=== PATIENT | male | born 1960 | race Two or more races ===

== ENCOUNTER 2016-11-11 19:11 | Inpatient (IN) | payer OTHER ==
[2016-11-11] MEDS ORDERED: SODIUM CHLORIDE 0.9% 500 ML IV STA (19:33)
[2016-11-11 19:47] LABS: Basophils % (A) 0 %; CH 32.2; Eosinophils # (A) 0.1 k/uL (0-0.7); Eosinophils % (A) 1 %; HCT 44.1 % (39.0-53.0); HDW 2.84; HGB 15.8 gm/dL (13.0-17.5); Luc # (Auto) 0.12; Luc % (Auto) 1; Lymphocytes # (A) 1.2 k/uL (1.0-4.8); Lymphocytes % (A) 9 %; MCH 31.2 pg (25.0-35.0); MCHC 35.8 g/dL (31.0-37.0); MCV 87.3 fL (80.0-100.0); Mean Platelet Volume 7.8; Monocytes # (A) 0.8 k/uL (0-1.0); Monocytes % (A) 6 %; Neutrophils # (A) 11.2 k/uL (1.3-7.7); Neutrophils % (A) 83 %; RBC 5.05 m/uL (4.30-5.90); WBC 13.5 k/uL (3.8-10.6); WBC (Perox) 13.35
[2016-11-11 20:01] LABS: ALT 29 U/L (21-72); AST 17 U/L (17-59); Alkaline Phosphatase 102 U/L (38-126); Anion Gap 13 mmol/L; Blood Urea Nitrogen 12 mg/dL (9-20); Calcium 9.3 mg/dL (8.4-10.2); Carbon Dioxide 22 mmol/L (22-30); Chloride 104 mmol/L (98-107); Glucose 223 mg/dL (74-99); Non-African American GFR(MDRD) >60 (>60 ml/min/1.73 sqM); Potassium 3.5 mmol/L (3.5-5.1); Sodium 139 mmol/L (137-145); Total Bilirubin 1.8 mg/dL (0.2-1.3); Total Protein 6.8 g/dL (6.3-8.2)
[2016-11-11 20:12] LABS: Partial Thromboplastin Time 22.2 sec (22.0-30.0); Prothrombin Time 10.4 sec (9.0-12.0)
[2016-11-11] MEDS ORDERED: SODIUM CHLORIDE 0.9% 2,500 ML IV ONE (20:16)
[2016-11-11] MEDS ORDERED: ACETAMINOPHEN TAB 325 MG TAB PO STA (20:17)
[2016-11-11] MEDS ORDERED: NITROGLYCERIN SL TABS 0.4 MG TAB SUBLINGUAL PRN (20:34)
[2016-11-11] MEDS ORDERED: ASPIRIN 325 MG TAB PO PRN (20:37)
--- NOTE | 2016-11-11 20:38 | XR ---
EXAMINATION TYPE: XR chest 1V portable DATE OF EXAM: 11/11/2016 COMPARISON: NONE INDICATION: Fever TECHNIQUE: Single frontal view of the chest is obtained. FINDINGS: The heart size is normal. The pulmonary vasculature is normal. The lungs are clear. IMPRESSION: 1. No acute pulmonary process.
--- NOTE | 2016-11-11 20:43 | ED ---
Chest Pain HPI - General Chief Complaint: Chest Pain Stated Complaint: chest pain Time Seen by Provider: 11/11/16 19:23 Source: patient Mode of arrival: EMS Limitations: no limitations - History of Present Illness Initial Comments: This patient's a 56-year-old man who presents to be evaluated for number symptoms at all developed this afternoon while he was working, sometime around 5 PM. The patient states that he first noticed she was having a little bit of frontal headache, moderate intensity, constant, without worsening or relieving factors. He states it's not the worst headache of life. The patient then also was feeling a little bit lightheaded, and then noted that he was having some pain in the chest is indicating the substernal area. States that it is kind of heaviness, moderate intensity. There are no associated symptoms. He has not noted any worsening or relieving factors. There were no anginal type symptoms, including no dyspnea, diaphoresis, nausea or vomiting, syncope, lightheadedness , or palpitations. No pain or swelling in the legs. MD Complaint: chest pain Onset/Timin -: hour(s) Onset: during exertion Pain Location: substernal Pain Radiation: none Severity: moderate Quality: heaviness Consistency: constant Improves With: nothing Worsens With: nothing Other Symptoms: fever - Related Data Home Medications Medication Instructions Recorded Confirmed Aspirin 325 mg PO DAILY PRN 11/11/16 11/11/16 Aspirin [Adult Low Dose Aspirin EC] 81 mg PO DAILY PRN 11/11/16 11/11/16 Lisinopril [Zestril] 40 mg PO DAILY 11/11/16 11/11/16 Previous Rx's Medication Instructions Recorded Meclizine [Antivert] 25 mg PO QID PRN #30 tab 11/14/16 glipiZIDE XL [Glucotrol XL] 5 mg PO DAILY #30 tab 11/14/16 metFORMIN HCL [Metformin HCl] 850 mg PO BID #60 tablet 11/14/16 Allergies Allergy/AdvReac Type Severity Reaction Status Date / Time tetanus toxoid, adsorbed Allergy Unknown Verified 11/11/16 19:59 Review of Systems ROS Statement: Those systems with pertinent positive or pertinent negative responses have been documented in the HPI. ROS Other: All systems not noted in ROS Statement are negative. Constitutional: Denies: fever, chills, weakness Eyes: Denies: vision change ENT: Denies: ear pain, throat pain, congestion Respiratory: Denies: cough, dyspnea, wheezes Cardiovascular: Reports: as per HPI, chest pain. Denies: palpitations, orthopnea, edema, syncope Gastrointestinal: Denies: abdominal pain, nausea, vomiting, melena, hematochezia Genitourinary: Denies: dysuria, frequency, hematuria Musculoskeletal: Denies: back pain Skin: Denies: rash Neurological: Reports: headache. Denies: weakness, numbness EKG Findings - EKG Comments: EKG Findings:: There are Q waves in leads II, III, and F aVF, suggestive of possible old inferior infarct. There are Q waves in V2 and V3 suggestive of possible old anterior infarct. - EKG Results: EKG: interpreted by ROSSI, sinus rhythm, normal axis, normal QRS, normal ST/T EKG shows: tachycardia (Rate 117 bpm) Past Medical History Past Medical History: Hypertension Additional Past Medical History / Comment(s): UMBILICAL HERNIA, BACK ISSUES History of Any Multi-Drug Resistant Organisms: None Reported Past Surgical History: No Surgical Hx Reported Past Psychological History: No Psychological Hx Reported Smoking Status: Never smoker Past Alcohol Use History: Occasional Past Drug Use History: None Reported - Past Family History Mother Family Medical History: Diabetes Mellitus General Exam Limitations: no limitations General appearance: alert, in no apparent distress Head exam: Present: atraumatic, normocephalic, normal inspection Eye exam: Present: normal appearance, PERRL, EOMI. Absent: scleral icterus, conjunctival injection ENT exam: Present: normal oropharynx, TM's normal bilaterally Neck exam: Present: normal inspection, full ROM. Absent: tenderness Respiratory exam: Present: normal lung sounds bilaterally. Absent: respiratory distress, wheezes, rales, rhonchi Cardiovascular Exam: Present: regular rate, normal rhythm, normal heart sounds. Absent: systolic murmur, diastolic murmur, rubs, gallop Neurological exam: Present: alert, oriented X3, CN II-XII intact. Absent: motor sensory deficit Skin exam: Present: warm, dry, intact, normal color. Absent: rash Course Vital Signs 11/11/16 11/11/16 11/11/16 19:13 19:27 19:43 Temperature 98.4 F 101.5 F H Pulse Rate 118 H Respiratory 20 10 L Rate Blood Pressure 126/80 O2 Sat by Pulse 97 Oximetry 11/11/16 11/11/16 11/11/16 20:10 21:00 21:51 Temperature 102.0 F H 101.5 F H 101.3 F H Pulse Rate 112 H 105 H 105 H Respiratory 12 18 16 Rate Blood Pressure 109/68 123/67 123/70 O2 Sat by Pulse 98 99 97 Oximetry 11/11/16 11/11/16 22:49 23:53 Temperature 102.3 F H 101.4 F H Pulse Rate 107 H 104 H Respiratory 12 16 Rate Blood Pressure 115/77 131/90 O2 Sat by Pulse 98 99 Oximetry Critical Care Time Critical Care Time: Yes (30 minutes) Disposition Clinical Impression: Chest pain, Fever, Sepsis Disposition: ADMITTED IP TO THIS HOSP Condition: Fair
[2016-11-11 22:04] LABS: Appearance,Urine Clear (Clear); Bilirubin,Urine Negative (Negative); Glucose,Urine (UA) Trace (Negative); Ketones,Urine Negative (Negative); Leukocyte Esterase,Urine Negative (Negative); Nitrite,Urine Negative (Negative); PH, Urine 5.5 (5.0-8.0); Protein,Urine Negative (Negative); Specific Gravity,Urine 1.011 (1.001-1.035); UA Billing (MACRO vs. MICRO) CHEM; Urobilinogen,Urine <2.0 mg/dL (<2.0)
[2016-11-11] MEDS ORDERED: IBUPROFEN 400 MG TAB PO STA (22:59)
[2016-11-11] MEDS: SODIUM CHLORIDE 0.9% 1,000 ML IV SCH (23:52)
[2016-11-12 02:03] LABS: Creatine Kinase 32 U/L (55-170)
[2016-11-12 02:16] LABS: Creatine Kinase MB 0.2 ng/mL (0.0-2.4); Troponin I <0.012 ng/mL (0.000-0.034)
[2016-11-12] MEDS: ACETAMINOPHEN TAB 325 MG TAB PO PRN ×3 (06:35→21:08)
[2016-11-12 07:33] LABS: Cholesterol 162 mg/dL (<200); HDL Cholesterol 46 mg/dL (40-60); Triglycerides 108 mg/dL (<150)
[2016-11-12] MEDS: LISINOPRIL 20 MG TAB PO SCH ×2 (07:52→10:41)
[2016-11-12 08:01] LABS: Creatine Kinase 39 U/L (55-170)
[2016-11-12] MEDS ORDERED: SODIUM CHLORIDE 0.9% 500 ML IV ONE (08:03)
[2016-11-12] MEDS ORDERED: SODIUM CHLORIDE 0.9% 1,000 ML IV ONE (08:03)
[2016-11-12 08:05] LABS: Creatine Kinase MB 0.3 ng/mL (0.0-2.4); Troponin I <0.012 ng/mL (0.000-0.034)
[2016-11-12] MEDS: SODIUM CHLORIDE 0.9% 1,000 ML IV SCH ×3 (08:31→17:26)
[2016-11-12] MEDS ORDERED: ASPIRIN 325 MG TAB PO SCH (09:00)
--- NOTE | 2016-11-12 10:17 | CONS ---
DATE OF CONSULTATION: CHIEF COMPLAINT: Fever, chills and chest discomfort. HISTORY OF PRESENT ILLNESS: This is a 56-year-old gentleman with history of hypertension who developed sudden onset headache, not feeling well and body aches all over and felt feverish. In all this, he also complained of chest pain. He came to hospital. His T-max is about 102.7 and he is sweating excessively. Serum lactate is elevated on admission and has gotten worse since admission, his chest discomfort has resolved. EKG does not reveal acute ischemic changes. 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 There is no prior cardiac history. There is no history of angioplasty. The patient is currently being treated with IV antibiotics without significant change in his symptoms and an ID consultation is pending at this time. Past medical history is significant for hypertension. Current medications include: 1. Aspirin. 2. Lisinopril. ALLERGIC TO TETANUS SHOTS. FAMILY HISTORY: Negative for premature coronary artery disease. Social history is negative for smoking. There is no history of ETOH abuse, or drug abuse. Past surgical history is significant for umbilical hernia surgery. REVIEW OF SYSTEMS: HEENT: Unremarkable. CARDIAC: As described above. RESPIRATORY: Negative. GI: Negative. GENITOURINARY: Negative. Allergy/immunology: Negative. SKIN: Negative. MUSCULOSKELETAL: Significant for arthritis. PSYCHOSOCIAL: Negative. Dermatology: Negative. ENDOCRINE: Negative. CONSTITUTIONAL: Significant for fever, chills and fatigue. Oncological: Negative. HEMATOLOGICAL: Negative. Dermatology: Negative. CONSTITUTIONAL: As described above. The rest of the system review is not relevant. On exam, temperature is 101.5. Heart rate is 90, blood pressure is 119/60, respirations 18. Chest exam reveals good air entry bilaterally. Heart exam reveals first and second heart sounds. No gallop. No murmur, no rub. ABDOMEN: Soft, nontender. Exam of the extremities did not reveal any edema. Peripheral pulses are felt. Labs have shown a creatinine of 0.7. Hemoglobin is 15.8. Platelet count is 170, potassium is 3.5. Creatinine is 0.7. ASSESSMENT: 1. Chest pain, atypical, noncardiac. 2. Fever, chills and elevated lactic acid possible sepsis. PLAN: I am going to obtain a 2-D echo. Cut down the dose of Lisinopril to 20 mg daily. Antibiotics on board. The patient has had poorly controlled blood pressures in the outpatient setting. I am going to follow him and adjust those. Will follow him through his hospitalization.
[2016-11-12] MEDS ORDERED: VANCOMYCIN 1,500 MG in SODIUM CHLORIDE 0.9% 250 ML IVPB ONE (12:14)
[2016-11-12] MEDS ORDERED: IV VANCOMYCIN PER PHARMACY 1 EACH MISC MISCELLANE ONE (12:45)
[2016-11-12] MEDS: cefTRIAXone 2,000 MG in SODIUM CHLORIDE 0.9% 100 ML IVPB SCH ×2 (13:16→23:31)
--- NOTE | 2016-11-12 15:42 | P.PCN ---
Date of Procedure: 11/12/16 Preoperative Diagnosis: Postoperative Diagnosis: Procedure(s) Performed: Preoperative diagnosis: Meningitis Post operative diagnoses: Meningitis Anesthesia local infiltration with lidocaine 1% 5 mL. Condition: stable Complication: none. Description of the procedure procedure risk and benefits discussed with the patient and family, consent signed. Patient placed in sitting position back prepped with chlorhexidine 3 times been local infiltration of the skin and subcutaneous tissue with lidocaine 1% 5 mL , for skin and subcu interstitial frustrations at L4- 5 levels then 22-gauge Quincke-type needle advanced slowly at L4-5 interlaminar space there was positive cerebrospinal fluid which was clear, no heme, no paresthesia ,total of 10 ML of clear cerebrospinal fluid collected in 4 different tubes 2-3 mL in each, then the needle removed and a Band-Aid applied and patient tolerated the procedure well without any complications. Implants: Indications for Procedure: Operative Findings: Description of Procedure:
[2016-11-12] MEDS ORDERED: MORPHINE SULFATE 2 MG/ML SYRINGE IVP PRN (16:02)
[2016-11-12 16:16] LABS: Glucose,CSF 115 mg/dL (40-70)
[2016-11-12 17:00] LABS: Appearance,CSF Clear
[2016-11-12] MEDS ORDERED: VANCOMYCIN 1,750 MG in SODIUM CHLORIDE 0.9% 250 ML IVPB SCH (21:00)
--- NOTE | 2016-11-12 21:25 | HP ---
DATE OF ADMISSION: 11/11/2016 REASON FOR ADMISSION: Headache and chest pain. HISTORY OF PRESENT ILLNESS: This is a 56-year-old gentleman who was in normal health until the day prior to admission comes in the hospital on the onset symptoms of feeling generally weak. Patient stated that he noted some diffuse headaches, however, complains of predominant frontal headache, moderate intensity with some concern for worsening neck pain on flexion in his neck. Patient also stated to have chest pain during the same period of time, came into the hospital from his work place for further evaluation. Patient stated that there is no alleviating or exacerbating factors for chest pain, chest pain was short lasting, stated to be pressure-like, no radiating symptoms were reported. Patient states that he does have some sensitivity to light at this time and headache was predominant during my evaluation. The patient was noted to have a lactic acidosis and fever. With concern for sepsis, patient was started on antibiotics, was admitted to the hospital. Patient received about 3 liters of crystalloids; however, fluids were discontinued thereafter. Patient's lactic acid thereafter worsened. Chest x-ray did not reveal any acute processes. UA was not significant. Patient was also have temperature during my evaluation greater than 101. No diarrhea, urinary urgency, frequency, difficulty in breathing or chest pain is reported during my evaluation. Fourteen-point review of system was done; none pertinent other than was mentioned above. Home medications include: 1. Aspirin. 2. Lisinopril. ALLERGIES INCLUDE A TETANUS TOXOID, DOSES WERE REVIEWED AND APPROPRIATELY RECONCILED. PAST MEDICAL HISTORY: Hypertension. PAST SURGICAL HISTORY: Umbilical hernia repair. FAMILY HISTORY: Negative for premature heart disease. SOCIAL HISTORY: No significant drug use, significant alcohol or tobacco use. PHYSICAL EXAMINATION: Vitals include a T-max of 102.3, blood pressure has been 122/75. Saturating 96% on room air. Heart rate between 86 to 120. GENERALLY: Patient appears to be alert, oriented x3. HEENT: The pupils are equal and reactive to light and accommodation. HEART: S1, S2 present. No murmur appreciated. LUNGS: Good air entry. No wheezing or rhonchi noted. ABDOMINAL EXAM: Soft, nontender, previous umbilical hernia repair scar is noted with no recurrent hernia. Bowel sounds are intact. No organomegaly. GENITOURINARY: No Darby in place. EXTREMITIES: Pulses can be palpated distally. Denies any tenderness on gross palpation. SKIN: On a gross skin exam does not appear to have any purpura or any skin rashes that were noted. NEUROLOGICALLY: Grossly cranial nerves II through XII grossly intact. Meningismus is appreciated; however, states to have some chronic back pain as well. There is some reproducibility of symptoms with Kernig's signs, blurry vision is reported. A bedside vision test appears to be within normal limits. Laboratory data include white count of 13.9, hemoglobin 15.8, hematocrit 44.1, platelets of 170. Sodium 139, potassium 3.5, chloride 104, bicarb 22. BUN 12, creatinine 0.70. ASSESSMENT AND PLAN: 1. Sepsis due to unknown sepsis of unknown source. 2. Hypertension. 3. Atypical chest pain. 4. Lactic acidosis secondary to above. PLAN: With plans of Meningismus we will obtain anesthesia consult for a lumbar puncture. We will have a cell count and culture thereafter. Patient will be started on Rocephin 2 grams q.12 hours and vancomycin. We will have infectious disease in consultation as well. A repeat chest x-ray will also be done. UA was reviewed and no source of sepsis is identified at this time. We will treat the current symptoms at this time. The rapid onset of symptoms could be concerning for viral etiology however, patient denies having any complaints at this time. We will follow. Discussed with the patient. Another fluid bolus was given. Follow up and maintenance fluids to be at 100 mL/h. We will follow.
[2016-11-13] MEDS: SODIUM CHLORIDE 0.9% 1,000 ML IV SCH ×2 (06:12→21:26)
[2016-11-13 06:35] LABS: Basophils % (A) 0 %; CH 31.3; CHCM 35.2; Eosinophils # (A) 0.1 k/uL (0-0.7); Eosinophils % (A) 1 %; HCT 38.6 % (39.0-53.0); HDW 2.81; HGB 13.4 gm/dL (13.0-17.5); Luc # (Auto) 0.16; Luc % (Auto) 2; Lymphocytes # (A) 1.4 k/uL (1.0-4.8); Lymphocytes % (A) 14 %; MCHC 34.8 g/dL (31.0-37.0); MCV 89.3 fL (80.0-100.0); Mean Platelet Volume 7.7; Monocytes # (A) 0.7 k/uL (0-1.0); Monocytes % (A) 7 %; Neutrophils # (A) 7.3 k/uL (1.3-7.7); Neutrophils % (A) 76 %; RBC 4.33 m/uL (4.30-5.90); RDW 13.3 % (11.5-15.5); WBC 9.7 k/uL (3.8-10.6); WBC (Perox) 10.23
[2016-11-13 06:49] LABS: ALT 28 U/L (21-72); AST 12 U/L (17-59); Alkaline Phosphatase 65 U/L (38-126); Anion Gap 7 mmol/L; Blood Urea Nitrogen 5 mg/dL (9-20); Calcium 8.1 mg/dL (8.4-10.2); Carbon Dioxide 24 mmol/L (22-30); Chloride 108 mmol/L (98-107); Glucose 182 mg/dL (74-99); Non-African American GFR(MDRD) >60 (>60 ml/min/1.73 sqM); Potassium 3.4 mmol/L (3.5-5.1); Sodium 139 mmol/L (137-145); Total Protein 5.2 g/dL (6.3-8.2)
[2016-11-13] MEDS: LISINOPRIL 20 MG TAB PO SCH (08:10)
[2016-11-13] MEDS: cefTRIAXone 2,000 MG in SODIUM CHLORIDE 0.9% 100 ML IVPB SCH (08:11)
[2016-11-13] MEDS: VANCOMYCIN 1,500 MG in SODIUM CHLORIDE 0.9% 250 ML IVPB SCH ×2 (08:49→16:00)
--- NOTE | 2016-11-13 09:06 | XR ---
EXAMINATION TYPE: XR chest 1V portable DATE OF EXAM: 11/13/2016 HISTORY: Shortness of breath. COMPARISON: 11/11/2016 TECHNIQUE: Single view of the chest is submitted. FINDINGS: Demonstrated are scattered senescent parenchymal change. There is no evidence for focal infiltrate. The heart is stable. Hilar and mediastinal structures are within normal limits. Degenerative changes are seen of the dorsal spine. IMPRESSION: 1. Chronic changes without evidence for acute pulmonary disease.
[2016-11-13 10:11] LABS: Erythrocyte Sedimentation Rate 18 mm/hr (0-15)
--- NOTE | 2016-11-13 11:00 | ECHOF ---
Referral Reason:chest pain MEASUREMENTS -------- HEIGHT: 165.1 cm WEIGHT: 100.7 kg BP: 140/60 RVIDd: 2.5 cm (< 3.3) IVSd: 1.3 cm (0.6 - 1.1) LVIDd: 4.2 cm (3.9 - 5.3) LVPWd: 1.3 cm (0.6 - 1.1) IVSs: 1.7 cm LVIDs: 3.8 cm LVPWs: 1.6 cm LA Diam: 3.7 cm (2.7 - 3.8) Ao Diam: 3.5 cm (2.0 - 3.7) AV Cusp: 2.2 cm (1.5 - 2.6) LA Diam: 3.8 cm (2.7 - 3.8) MV EXCURSION: 17.701 mm (> 18.000) MV EF SLOPE: 94 mm/s (70 - 150) EPSS: 0.5 cm MV E Vipin: 0.61 m/s MV DecT: 173 ms MV A Vipin: 0.83 m/s MV E/A Ratio: 0.73 RAP: 5.00 mmHg RVSP: 24.08 mmHg FINDINGS -------- Sinus rhythm. This was a technically adequate study. There is mild concentric left ventricular hypertrophy. Overall left ventricular systolic function is normal with, an EF between 55 - 60 %. The right ventricle is normal in size. The left atrial size is normal. The right atrial size is normal. There is mild aortic valve sclerosis. There is no evidence of aortic regurgitation. Mild mitral annular calcification present. Mild mitral regurgitation is present. Mild tricuspid regurgitation present. There is no evidence of pulmonary hypertension. The right ventricular systolic pressure, as measured by Doppler, is 24.08mmHg. There is no pulmonic regurgitation present. The aortic root size is normal. There is no pericardial effusion. CONCLUSIONS -------- 1. There is mild concentric left ventricular hypertrophy. 2. Overall left ventricular systolic function is normal with, an EF between 55 - 60 %. 3. There is mild aortic valve sclerosis. 4. Mild mitral annular calcification present. 5. Mild mitral regurgitation is present. 6. Mild tricuspid regurgitation present. 7. There is no evidence of pulmonary hypertension. 8. The right ventricular systolic pressure, as measured by Doppler, is 24.08mmHg. 9. There is no pericardial effusion. IT INTERN: Gemma Gomez RDCS
--- NOTE | 2016-11-13 12:42 | PN ---
56-year-old gentleman who is admitted to hospital with a febrile illness. Cardiology had been consulted because of chest discomfort. He is doing much better now. Fever has resolved. Chest pain has resolved. An echocardiogram shows normal LV function. On exam, vital signs are stable. There is no jugular venous distention. Chest exam reveals good air entry bilaterally. Heart exam reveals first and second heart sounds. No gallop. ABDOMEN: Soft. Exam of the extremities did not reveal edema. Peripheral pulses are felt. The patient is currently on Zestril 40 daily along with antibiotics. ASSESSMENT: 1. Febrile illness of unclear etiology. 2. Chest pain, atypical. PLAN: No further cardiac work-up at this time. Reviewed echo results with him. From my standpoint, patient is stable to be discharged home and I will arrange an outpatient stress test on him when he is more stable.
--- NOTE | 2016-11-13 14:49 | CT ---
EXAMINATION TYPE: CT brain wo con DATE OF EXAM: 11/13/2016 2:12 PM COMPARISON: NONE HISTORY: Dizziness CT DLP: 1047.10 mGycm Automated exposure control for dose reduction was used. FINDINGS: Ventricles are of normal size. There is no mass effect or midline shift. There is no sign of intracra nial hemorrhage. The calvarium is intact. IMPRESSION: Negative unenhanced head CT scan.
--- NOTE | 2016-11-13 16:47 | P.PN ---
Subjective HISTORY OF PRESENT ILLNESS: This is a 56-year-old gentleman who was in normal health until the day prior to admission comes in the hospital on the onset symptoms of feeling generally weak. Patient stated that he noted some diffuse headaches, however, complains of predominant frontal headache, moderate intensity with some concern for worsening neck pain on flexion in his neck. Patient also stated to have chest pain during the same period of time, came into the hospital from his work place for further evaluation. Patient stated that there is no alleviating or exacerbating factors for chest pain, chest pain was short lasting, stated to be pressure-like, no radiating symptoms were reported. Patient states that he does have some sensitivity to light at this time and headache was predominant during my evaluation. The patient was noted to have a lactic acidosis and fever. With concern for sepsis, patient was started on antibiotics, was admitted to the hospital. Patient received about 3 liters of crystalloids; however, fluids were discontinued thereafter. Patient's lactic acid thereafter worsened. Chest x-ray did not reveal any acute processes. UA was not significant. Patient was also have temperature during my evaluation greater than 101. No diarrhea, urinary urgency, frequency, difficulty in breathing or chest pain is reported during my evaluation. 11/13/16 States to have some dizziness, however improved from prior eval no more fevers reported Fourteen-point review of system was done; none pertinent other than was mentioned above. PHYSICAL EXAMINATION: V GENERALLY: Patient appears to be alert, oriented x3. HEENT: The pupils are equal and reactive to light and accommodation. HEART: S1, S2 present. No murmur appreciated. LUNGS: Good air entry. No wheezing or rhonchi noted. ABDOMINAL EXAM: Soft, nontender, previous umbilical hernia repair scar is noted with no recurrent hernia. Bowel sounds are intact. No organomegaly. GENITOURINARY: No Darby in place. EXTREMITIES: Pulses can be palpated distally. Denies any tenderness on gross palpation. SKIN: On a gross skin exam does not appear to have any purpura or any skin rashes that were noted. NEUROLOGICALLY: Grossly cranial nerves II through XII grossly intact. no focal motor or sensory deficits noted. Objective - Vital Signs Vital signs: Vital Signs Temp 98.8 F 11/13/16 16:00 Pulse 76 11/13/16 16:00 Resp 19 11/13/16 16:00 BP 142/97 11/13/16 16:00 Pulse Ox 96 11/13/16 16:00 Intake & Output 11/12/16 11/13/16 11/13/16 18:59 06:59 18:59 Intake Total 2300 1450 1180 Output Total 675 550 Balance 1625 1450 630 Weight 98.8 kg Intake: IV 1450 490 Sodium Chloride 0.9% 1, 1100 140 000 ml @ 100 mls/hr IV . Q10H [facility] Rx#:[id number] Vancomycin 1,750 mg In 250 250 Sodium Chloride 0.9% 250 ml @ 125 mls/hr IVPB Q12HR [facility] Rx#:[id number] cefTRIAXone 2,000 mg In 100 100 Sodium Chloride 0.9% 100 ml @ 100 mls/hr IVPB Q12HR [facility] Rx#:[id number] Intake, IV Titration 1850 Amount Sodium Chloride 0.9% 500 1500 ml @ 999 mls/hr IV .Q31M ONE Rx#:[id number] Vancomycin 1,750 mg In 250 Sodium Chloride 0.9% 250 ml @ 125 mls/hr IVPB Q12HR [facility] Rx#:[id number] cefTRIAXone 1,000 mg In 100 Sodium Chloride 0.9% 50 ml @ 100 mls/hr IVPB HS [facility] Rx#:[id number] Oral 450 690 Output: Urine 675 550 Other: Voiding Method Toilet Toilet Toilet Urinal Urinal Urinal # Voids 2 2 2 - Labs CBC & Chem 7: 11/13/16 06:03 11/13/16 06:03 Labs: Abnormal Lab Results - Last 24 Hours (Table) 11/13/16 11/13/16 Range/Units 06:03 06:03 Hct 38.6 L (39.0-53.0) % Plt Count 121 L (150-450) k/uL ESR 18 H (0-15) mm/hr Potassium 3.4 L (3.5-5.1) mmol/L Chloride 108 H (98-107) mmol/L BUN 5 L (9-20) mg/dL Creatinine 0.60 L (0.66-1.25) mg/dL Glucose 182 H (74-99) mg/dL Calcium 8.1 L (8.4-10.2) mg/dL AST 12 L (17-59) U/L Total Protein 5.2 L (6.3-8.2) g/dL Albumin 2.8 L (3.5-5.0) g/dL TSH 0.096 L (0.465-4.680) mIU/L Microbiology - Last 24 Hours (Table) 11/11/16 21:45 Urine Culture - Final Urine,Voided 11/12/16 12:15 CSF Gram Stain - Preliminary Cerebral Spinal Fluid 11/11/16 19:20 Blood Culture - Preliminary Blood No Growth after 24 hours Assessment and Plan Plan: ASSESSMENT AND PLAN: 1. Sepsis due to unknown sepsis of unknown source. 2. Hypertension. 3. Atypical chest pain. 4. Lactic acidosis secondary to above. PLAN: . repeat chest xray noted csf not consistent with meningitis No source of infection found yet change dose of rocephin continue empiric coverage Orthostatics to be done ct head negative will follow await clinical course and follow to find out any acute source of sepsis repeat urinalysis .
[2016-11-13 16:51] LABS: Appearance,Urine Clear (Clear); Bilirubin,Urine Negative (Negative); Glucose,Urine (UA) 4+ (Negative); Ketones,Urine Negative (Negative); Leukocyte Esterase,Urine Negative (Negative); Nitrite,Urine Negative (Negative); Protein,Urine Negative (Negative); Specific Gravity,Urine 1.007 (1.001-1.035); UA Billing (MACRO vs. MICRO) CHEM; Urobilinogen,Urine <2.0 mg/dL (<2.0)
[2016-11-13] MEDS ORDERED: MECLIZINE 25 MG TAB PO STA (16:58)
--- NOTE | 2016-11-13 16:58 | P.CONS ---
History of Present Illness - Reason for Consult Consult date: 11/13/16 - Chief Complaint Fever, headache and chest pain - History of Present Illness Pleasant 56-year-old male routinely has modestly good health presents to hospital with a somewhat sudden onset of acute illness. He developed severe generalized weakness. Associated with a significant diffuse headache mostly frontal but also with some neck stiffness originally. He then developed discomforts in his chest that was quite uncomfortable. He has had a history of cardiac evaluation in the past with a stress test, and because of his history presented to emergency center. He has been seen by cardiology for concerns of his chest pain. Infectious disease consultation requested regarding the concerns to meningitis. The patient's family is present. He has 3 daughters and 3 granddaughters who are quite young. One of the daughters and grandchild to live with them. His is also been well. No other ill contacts. 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 He denies other specific symptoms before the onset. He was having no significant nausea or emesis. No congestion or Coryza have occurred. Does not routinely have difficulties with ALLERGIES for his respiratory tract. After fluid resuscitation he feels considerably better. He over does relate that he is still having some dizziness. To be specific when he stands up to go to the bathroom he sometimes feels like he is going to pass out. He does not feel like the room is spinning about him. Review of Systems HEENT:Denies headache or acute visual change. Denies sinus or mouth discomforts. Denies neck stiffness or pain. Denies significant oral cavity pain. Denies difficulty on swallowing. Lungs: Denies significant shortness of breath, cough, sputum production, or hemoptysis. Cardiovascular: Denies significant shortness of breath, chest pain, chest wall pain, orthopnea, dyspnea on exertion, syncope Gastrointestinal:Denies nausea, vomiting, diarrhea, constipation, hematemesis, melena, hematochezia. No no significant change of bowel habit noticed. Musculoskeletal: denies significant myalgias or arthralgias. No new joint swelling. Denies new back pain. Skin: Denies new rash or lesions. No new ulcers or wounds are related.. Neuro: Denies seizure history. No prior neurological problems. Please see the HPI. Psychiatric:Denies anxiety or depression. Endocrine: Denies significant fatigue, denies significant weight loss or weight gain. Past Medical History Past Medical History: Hypertension Additional Past Medical History / Comment(s): UMBILICAL HERNIA, BACK ISSUES ( Herniated disc in lower back), History of Any Multi-Drug Resistant Organisms: None Reported Past Surgical History: No Surgical Hx Reported Past Anesthesia/Blood Transfusion Reactions: No Reported Reaction Past Psychological History: No Psychological Hx Reported Additional Psychological History / Comment(s): . Lives with his as well as daughter and grandchild. Stopped smoking 17 years ago. No smoking or alcohol use. works 60 hours a week at the [employer] with no new exposures. No international travel. No animal exposures Smoking Status: Never smoker Past Alcohol Use History: Occasional Past Drug Use History: None Reported - Past Family History Mother Family Medical History: Diabetes Mellitus Medications and Allergies Home Medications and Allergies Comment(s): Current Medications Acetaminophen (Tylenol Tab) 650 mg PO Q4HR PRN PRN Reason: Mild Pain Last Admin: 11/12/16 21:08 Dose: 650 mg Sodium Chloride (Saline 0.9%) 1,000 mls @ 20 mls/hr IV .Q24H [facility] Last Admin: 11/12/16 17:25 Dose: Not Given Vancomycin HCl 1,500 mg/ (Sodium Chloride) 250 mls @ 125 mls/hr IVPB Q8H [facility] Last Admin: 11/13/16 16:00 Dose: 125 mls/hr Ceftriaxone Sodium 1,000 mg/ (Sodium Chloride) 50 mls @ 100 mls/hr IVPB Q24HR [facility] Lisinopril (Zestril) 40 mg PO DAILY [facility] Last Admin: 11/13/16 08:10 Dose: 40 mg Morphine Sulfate (Morphine Sulfate (Inj)) 2 mg IVP Q4H PRN PRN Reason: Pain/Discomfort Last Admin: 11/12/16 16:29 Dose: 2 mg Nitroglycerin (Nitrostat) 0.4 mg SUBLINGUAL Q5M PRN PRN Reason: Chest Pain Home Medications Medication Instructions Recorded Confirmed Type Aspirin 325 mg PO DAILY PRN 11/11/16 11/11/16 History Aspirin [Adult Low Dose Aspirin EC] 81 mg PO DAILY PRN 11/11/16 11/11/16 History Lisinopril [Zestril] 40 mg PO DAILY 11/11/16 11/11/16 History Allergies Allergy/AdvReac Type Severity Reaction Status Date / Time tetanus toxoid, adsorbed Allergy Unknown Verified 11/11/16 19:59 Physical Exam Vitals: Vital Signs Temp Pulse Resp BP BP BP BP 11/13/16 16:00 98.8 F 76 19 141/93 154/95 142/97 11/13/16 12:00 97.1 F L 70 18 134/88 11/13/16 08:00 99.0 F 74 18 123/64 11/13/16 04:00 98.5 F 82 18 128/79 11/13/16 00:00 98.4 F 83 18 126/78 11/12/16 20:00 100.3 F H 86 18 137/73 11/12/16 18:30 135/78 Pulse Ox 11/13/16 16:00 96 11/13/16 12:00 97 11/13/16 08:00 98 11/13/16 04:00 96 11/13/16 00:00 94 L 11/12/16 20:00 95 11/12/16 18:30 Intake and Output 11/13/16 11/13/16 11/13/16 06:59 14:59 22:59 Intake Total 800 1180 Output Total 550 Balance 800 630 Intake: IV 800 490 Sodium Chloride 0.9% 1, 800 140 000 ml @ 100 mls/hr IV . Q10H [facility] Rx#:[id number] Vancomycin 1,750 mg In 250 Sodium Chloride 0.9% 250 ml @ 125 mls/hr IVPB Q12HR [facility] Rx#:[id number] cefTRIAXone 2,000 mg In 100 Sodium Chloride 0.9% 100 ml @ 100 mls/hr IVPB Q12HR [facility] Rx#:[id number] Oral 690 Output: Urine 550 Other: Voiding Method Toilet Toilet Toilet Urinal Urinal Urinal # Voids 2 2 Weight 98.8 kg Pleasant 56-year-old male who appears about his stated age HEENT: Anicteric conjunctiva are pink and moist nasal mucosa grossly intact without significant lesions, there is no thrush. Neck: The neck is supple without significant lymphadenopathy or thyromegaly. Lungs: Good bilateral air entry without significant crackles or wheezing. There is no significant bronchial sounds. There is no egophony or dullness. Heart: Regular rate and rhythm with an audible S1-S2, no S3 no S4. There is no significant murmur click or rub, PMI was nondisplaced. Abdomen: Positive bowel sounds soft and nontender without palpable masses or organomegaly. There was no guarding or rebound. Extremities: The upper extremities have excellent pulses they are symmetric, no significant petechiae or telangiectasia. No splinter hemorrhages were noted. The lower extremities are free from significant edema. The peripheral pulses were 2+ and symmetric. Neuro: Awake alert oriented to person place and time. There are no acute new gross focal sensory motor deficits. Results CBC & Chem 7: 11/13/16 06:03 11/13/16 06:03 Labs: Abnormal Lab Results - Last 24 Hours (Table) 11/13/16 11/13/16 Range/Units 06: 06:03 Hct 38.6 L (39.0-53.0) % Plt Count 121 L (150-450) k/uL ESR 18 H (0-15) mm/hr Potassium 3.4 L (3.5-5.1) mmol/L Chloride 108 H (98-107) mmol/L BUN 5 L (9-20) mg/dL Creatinine 0.60 L (0.66-1.25) mg/dL Glucose 182 H (74-99) mg/dL Calcium 8.1 L (8.4-10.2) mg/dL AST 12 L (17-59) U/L Total Protein 5.2 L (6.3-8.2) g/dL Albumin 2.8 L (3.5-5.0) g/dL TSH 0.096 L (0.465-4.680) mIU/L Microbiology - Last 24 Hours (Table) 11/11/16 21:45 Urine Culture - Final Urine,Voided 11/12/16 12:15 CSF Gram Stain - Preliminary Cerebral Spinal Fluid 11/11/16 19:20 Blood Culture - Preliminary Blood No Growth after 24 hours Laboratory Results WBC 9.7 k/uL (3.8-10.6) 11/13/16 06:03 RBC 4.33 m/uL (4.30-5.90) 11/13/16 06:03 Hgb 13.4 gm/dL (13.0-17.5) 11/13/16 06:03 Hct 38.6 % (39.0-53.0) L 11/13/16 06:03 MCV 89.3 fL (80.0-100.0) 11/13/16 06:03 MCH 31.0 pg (25.0-35.0) 11/13/16 06:03 MCHC 34.8 g/dL (31.0-37.0) 11/13/16 06:03 RDW 13.3 % (11.5-15.5) 11/13/16 06:03 Plt Count 121 k/uL (150-450) L 11/13/16 06:03 Neutrophils % 76 % 11/13/16 06:03 Lymphocytes % 14 % 11/13/16 06:03 Monocytes % 7 % 11/13/16 06:03 Eosinophils % 1 % 11/13/16 06:03 Basophils % 0 % 11/13/16 06:03 Neutrophils # 7.3 k/uL (1.3-7.7) 11/13/16 06:03 Lymphocytes # 1.4 k/uL (1.0-4.8) 11/13/16 06:03 Monocytes # 0.7 k/uL (0-1.0) 11/13/16 06:03 Eosinophils # 0.1 k/uL (0-0.7) 11/13/16 06:03 Basophils # 0.0 k/uL (0-0.2) 11/13/16 06:03 ESR 18 mm/hr (0-15) H 11/13/16 06:03 PT 10.4 sec (9.0-12.0) 11/11/16 19:20 INR 1.0 (<1.1) 11/11/16 19:20 APTT 22.2 sec (22.0-30.0) 11/11/16 19:20 D-Dimer 0.49 mg/L FEU (<0.60) 11/11/16 19:20 Sodium 139 mmol/L (137-145) 11/13/16 06:03 Potassium 3.4 mmol/L (3.5-5.1) L 11/13/16 06:03 Chloride 108 mmol/L (98-107) H 11/13/16 06:03 Carbon Dioxide 24 mmol/L (22-30) 11/13/16 06:03 Anion Gap 7 mmol/L 11/13/16 06:03 BUN 5 mg/dL (9-20) L 11/13/16 06:03 Creatinine 0.60 mg/dL (0.66-1.25) L 11/13/16 06:03 Est GFR (MDRD) Af Amer >60 (>60 ml/min/1.73 sqM) 11/13/16 06:03 Est GFR (MDRD) Non-Af >60 (>60 ml/min/1.73 sqM) 11/13/16 06:03 Glucose 182 mg/dL (74-99) H 11/13/16 06:03 Plasma Lactic Acid [place] 1.8 mmol/L (0.7-2.0) 11/12/16 18:02 Calcium 8.1 mg/dL (8.4-10.2) L 11/13/16 06:03 Total Bilirubin 1.0 mg/dL (0.2-1.3) 11/13/16 06:03 AST 12 U/L (17-59) L 11/13/16 06:03 ALT 28 U/L (21-72) 11/13/16 06:03 Alkaline Phosphatase 65 U/L (38-126) 11/13/16 06:03 Total Creatine Kinase 39 U/L (55-170) L 11/12/16 06:41 CK-MB (CK-2) 0.3 ng/mL (0.0-2.4) 11/12/16 06:41 CK-MB (CK-2) Rel Index 0.8 11/12/16 06:41 Troponin I <0.012 ng/mL (0.000-0.034) 11/12/16 06:41 Total Protein 5.2 g/dL (6.3-8.2) L 11/13/16 06:03 Albumin 2.8 g/dL (3.5-5.0) L 11/13/16 06:03 Triglycerides 108 mg/dL (<150) 11/12/16 06:41 Cholesterol 162 mg/dL (<200) 11/12/16 06:41 LDL Cholesterol, Calc 94 mg/dL (0-99) 11/12/16 06:41 HDL Cholesterol 46 mg/dL (40-60) 11/12/16 06:41 TSH 0.096 mIU/L (0.465-4.680) L 11/13/16 06:03 Free T4 1.19 ng/dL (0.78-2.19) 11/13/16 06:03 Urine Color Light Yellow 11/13/16 16:44 Urine Appearance Clear (Clear) 11/13/16 16:44 Urine pH 7.0 (5.0-8.0) 11/13/16 16:44 Ur Specific Allen 1.007 (1.001-1.035) 11/13/16 16:44 Urine Protein Negative (Negative) 11/13/16 16:44 Urine Glucose (UA) 4+ (Negative) H 11/13/16 16:44 Urine Ketones Negative (Negative) 11/13/16 16:44 Urine Blood Negative (Negative) 11/13/16 16:44 Urine Nitrite Negative (Negative) 11/13/16 16:44 Urine Bilirubin Negative (Negative) 11/13/16 16:44 Urine Urobilinogen <2.0 mg/dL (<2.0) 11/13/16 16:44 Ur Leukocyte Esterase Negative (Negative) 11/13/16 16:44 CSF Tube Number 4 11/12/16 12:15 CSF Volume 2.5 11/12/16 12:15 CSF Appearance Clear 11/12/16 12:15 CSF Color Colorless 11/12/16 12:15 CSF RBC 0 u/L (0-10) 11/12/16 12:15 CSF Tot Nucleated Cells 0 u/L (0-5) 11/12/16 12:15 CSF Glucose 115 mg/dL (40-70) H 11/12/16 12:15 CSF Total Protein 39 mg/dL (12-60) 11/12/16 12:15 Microbiology 11/11/16 21:45 Urine,Voided Urine Culture - Final 11/12/16 12:15 Cerebral Spinal Fluid CSF Gram Stain - Preliminary 11/11/16 19:20 Blood Blood Culture - Preliminary No Growth after 24 hours Assessment and Plan (1) Fever Narrative/Plan: Pleasant 56-year-old male presents to Hospital with a relatively sudden onset of feeling very poorly. He had fever with headache. He also complains of the dizziness. Upon evaluation appears to be more of a positional onset lightheadedness with feelings of near syncope. He does not have vertigo. His chest pain has resolved. He is overall feeling considerably better. Fevers are also improving. Patient went lumbar puncture as noted above. The CSF is completely normal. The patient does not have meningitis. Computed tomography scan was performed with no evidence of any abnormalities. At this time the patient has the acute onset of a febrile illness associated with transient chest pain that is now resolved. He's been seen by cardiology. An outpatient reevaluation will occur he is been seen by them in the past and will have a follow-up stress test. If this time appears that he has a viral infection with vestibulitis causing his current symptoms. With hydration he is significantly improved. His fevers have resolved. With the negative lumbar puncture antibiotic therapy is discontinued. Antipyretics as needed Antivert will be tried to see if this cannot help with his current symptoms. If fever is resolved May discharge soon. Status: Acute (2) Chest pain Status: Acute (3) Vestibulitis of ear Status: Acute
[2016-11-13] MEDS: MECLIZINE 25 MG TAB PO PRN (20:29)
[2016-11-13] MEDS: ACETAMINOPHEN TAB 325 MG TAB PO PRN (20:33)
[2016-11-14 06:49] LABS: Basophils % (A) 0 %; CH 31.6; CHCM 36.3; Eosinophils # (A) 0.3 k/uL (0-0.7); Eosinophils % (A) 3 %; HCT 39.2 % (39.0-53.0); HDW 2.99; HGB 14.1 gm/dL (13.0-17.5); Luc # (Auto) 0.29; Luc % (Auto) 4; Lymphocytes # (A) 2.2 k/uL (1.0-4.8); Lymphocytes % (A) 27 %; MCH 31.5 pg (25.0-35.0); MCHC 36.1 g/dL (31.0-37.0); MCV 87.4 fL (80.0-100.0); Mean Platelet Volume 7.7; Monocytes # (A) 0.6 k/uL (0-1.0); Monocytes % (A) 8 %; Neutrophils # (A) 4.6 k/uL (1.3-7.7); Neutrophils % (A) 58 %; RBC 4.49 m/uL (4.30-5.90)
[2016-11-14 07:06] LABS: ALT 26 U/L (21-72); AST 13 U/L (17-59); Alkaline Phosphatase 63 U/L (38-126); Anion Gap 7 mmol/L; Blood Urea Nitrogen 7 mg/dL (9-20); Calcium 8.2 mg/dL (8.4-10.2); Carbon Dioxide 27 mmol/L (22-30); Chloride 108 mmol/L (98-107); Glucose 172 mg/dL (74-99); Non-African American GFR(MDRD) >60 (>60 ml/min/1.73 sqM); Potassium 3.8 mmol/L (3.5-5.1); Sodium 142 mmol/L (137-145); Total Bilirubin 1.2 mg/dL (0.2-1.3); Total Protein 5.8 g/dL (6.3-8.2)
[2016-11-14] MEDS: LISINOPRIL 20 MG TAB PO SCH (07:40)
[2016-11-14 07:56] VITALS: RESP 17; TEMP 97
[2016-11-14 07:56] LABS: Hemoglobin A1C 9.5 % (4.2-6.1)
[2016-11-14] MEDS: MECLIZINE 25 MG TAB PO PRN (08:26)
[2016-11-14] MEDS ORDERED: cefTRIAXone 1,000 MG VIAL (IM USE) IM SCH (09:00)
--- NOTE | 2016-11-14 11:13 | P.PN ---
Subjective Principal diagnosis: Fever, atypical chest pain This is a 56-year-old gentleman with known history of hypertension, who presented to the hospital with a fever, associated headache, and atypical chest pain. EKG did not reveal any acute changes, there was evidence of prior inferior wall myocardial infarction and poor R-wave progression suggestive of prior anteroseptal myocardial infarction. No prior cardiac history. Troponins were negative 3. Echocardiogram with Doppler study revealed an ejection fraction of 55-60%. Patient denies having any further chest discomfort. Objective - Vital Signs Vital signs: Vital Signs Temp 97 F L 11/14/16 07:46 Pulse 71 11/14/16 07:46 Resp 17 11/14/16 07:46 BP 154/103 11/14/16 07:46 Pulse Ox 96 11/14/16 07:46 Intake & Output 11/13/16 11/14/16 11/14/16 18:59 06:59 18:59 Intake Total 1420 0 Output Total 550 Balance 870 0 Weight 96.8 kg Intake: IV 490 0 Sodium Chloride 0.9% 1, 140 0 000 ml @ 100 mls/hr IV . Q10H [facility] Rx#:[id number] Vancomycin 1,750 mg In 250 Sodium Chloride 0.9% 250 ml @ 125 mls/hr IVPB Q12HR [facility] Rx#:[id number] cefTRIAXone 2,000 mg In 100 Sodium Chloride 0.9% 100 ml @ 100 mls/hr IVPB Q12HR [facility] Rx#:[id number] Oral 930 Output: Urine 550 Other: Voiding Method Toilet Toilet Urinal Urinal # Voids 2 1 - Exam PHYSICAL EXAMINATION: HEENT: Head is atraumatic, normocephalic. Pupils equal, round. Neck is supple. There is no elevated jugular venous pressure. HEART EXAMINATION: Heart S1, S2 normal. No murmur or gallop heard. CHEST EXAMINATION: Lungs are clear to auscultation and precussion. No chest wall tenderness is noted on palpation or with deep breathing. ABDOMEN: Soft, nontender. Bowel sounds are heard. No organomegaly noted. EXTREMITIES: 2+ peripheral pulses with no evidence of peripheral edema and no calf tenderness noted. NEUROLOGIC patient is awake, alert and oriented -3.] . - Labs CBC & Chem 7: 11/14/16 06:08 06/05/17 06:08 Labs: Abnormal Lab Results - Last 24 Hours (Table) 11/13/16 11/14/16 11/14/16 Range/Units 16:44 06:08 06:08 Plt Count 127 L (150-450) k/uL Chloride 108 H (98-107) mmol/L BUN 7 L (9-20) mg/dL Glucose 172 H (74-99) mg/dL Hemoglobin A1c (4.2-6.1) % Calcium 8.2 L (8.4-10.2) mg/dL AST 13 L (17-59) U/L Total Protein 5.8 L (6.3-8.2) g/dL Albumin 3.0 L (3.5-5.0) g/dL Urine Glucose (UA) 4+ H (Negative) 11/14/16 Range/Units 06:08 Plt Count (150-450) k/uL Chloride (98-107) mmol/L BUN (9-20) mg/dL Glucose (74-99) mg/dL Hemoglobin A1c 9.5 H (4.2-6.1) % Calcium (8.4-10.2) mg/dL AST (17-59) U/L Total Protein (6.3-8.2) g/dL Albumin (3.5-5.0) g/dL Urine Glucose (UA) (Negative) Microbiology - Last 24 Hours (Table) 11/13/16 16:44 Urine Culture - Preliminary Urine,Voided 11/11/16 19:20 Blood Culture - Preliminary Blood No Growth after 48 hours 11/11/16 21:45 Urine Culture - Final Urine,Voided Assessment and Plan (1) Atypical chest pain Status: Acute (2) Fever Status: Acute (3) Vestibulitis of ear Status: Acute Plan: From cardiology's perspective, we will follow this patient with you now on an as -needed basis only, we will make him an outpatient follow-up visit with Dr. Anderson and an outpatient stress test will also be ordered down the road. DNP note has been reviewed, I agree with a documented findings and plan of care. Patient was seen and examined.
[2016-11-14 13:46] VITALS: BMI 34.4
--- NOTE | 2016-11-14 17:39 | P.DS ---
Providers Date of admission: 11/11/16 20:35 Attending physician: Asa Madrid MD Consults: 11/11/16 20:35 Consult Physician Routine Consulting Provider: Chiquita Branham Consult Reason/Comments: chest pain Do you want consulting provider notified?: Yes 11/12/16 12:14 Consult Anesthesia Stat Consulting Provider: Anesthesia,Services Consult Reason/Comments: LP 11/12/16 12:18 Consult Physician Routine Consulting Provider: Woody Crocker Consult Reason/Comments: Lactic acid 4.1 Do you want consulting provider notified?: Yes Primary care physician: Leonard Morse Hospital Course: This is a 56-year-old gentleman who was in normal health until the day prior to admission comes in the hospital on the onset symptoms of feeling generally weak. Patient stated that he noted some diffuse headaches, however, complains of predominant frontal headache, moderate intensity with some concern for worsening neck pain on flexion in his neck. Patient also stated to have chest pain during the same period of time, came into the hospital from his work place for further evaluation. Patient stated that there is no alleviating or exacerbating factors for chest pain, chest pain was short lasting, stated to be pressure-like, no radiating symptoms were reported. Patient states that he does have some sensitivity to light at this time and headache was predominant during my evaluation. The patient was noted to have a lactic acidosis and fever. With concern for sepsis, patient was started on antibiotics, was admitted to the hospital. Patient received about 3 liters of crystalloids; however, fluids were discontinued thereafter. Patient's lactic acid thereafter worsened. Chest x-ray did not reveal any acute processes. UA was not significant. Patient was also have temperature during my evaluation greater than 101. No diarrhea, urinary urgency, frequency, difficulty in breathing or chest pain is reported during my evaluation. 11/13/16 States to have some dizziness, however improved from prior eval no more fevers reported Fourteen-point review of system was done; none pertinent other than was mentioned above. PHYSICAL EXAMINATION: V GENERALLY: Patient appears to be alert, oriented x3. HEENT: The pupils are equal and reactive to light and accommodation. HEART: S1, S2 present. No murmur appreciated. LUNGS: Good air entry. No wheezing or rhonchi noted. ABDOMINAL EXAM: Soft, nontender, previous umbilical hernia repair scar is noted with no recurrent hernia. Bowel sounds are intact. No organomegaly. GENITOURINARY: No Darby in place. EXTREMITIES: Pulses can be palpated distally. Denies any tenderness on gross palpation. SKIN: On a gross skin exam does not appear to have any purpura or any skin rashes that were noted. NEUROLOGICALLY: Grossly cranial nerves II through XII grossly intact. no focal motor or sensory deficits noted. Assessment and Plan Plan: ASSESSMENT AND PLAN: 1. Sepsis , likely viral etiology 2. Hypertension. 3. Atypical chest pain. 4. Lactic acidosis secondary to above. 5. viral vestibulitis dc home did well off abx dc home on antivert Patient Condition at Discharge: Fair Plan - Discharge Summary New Discharge Prescriptions: New RX: Meclizine [Antivert] 25 mg PO QID PRN #30 tab PRN Reason: Vertigo Continue RX: Lisinopril [Zestril] 40 mg PO DAILY RX: Aspirin 325 mg PO DAILY PRN PRN Reason: Pain RX: Aspirin [Adult Low Dose Aspirin EC] 81 mg PO DAILY PRN PRN Reason: Pain Discharge Medication List RX: Aspirin 325 mg PO DAILY PRN 11/11/16 [History] RX: Aspirin [Adult Low Dose Aspirin EC] 81 mg PO DAILY PRN 11/11/16 [History] RX: Lisinopril [Zestril] 40 mg PO DAILY 11/11/16 [History] RX: Meclizine [Antivert] 25 mg PO QID PRN #30 tab 11/14/16 [Rx] Follow up Appointment(s)/Referral(s): Ponce Marie MD [Primary Care Provider] - 1-2 days Tyler Linn MD [STAFF PHYSICIAN] - 4 Weeks Patient Instructions/Handouts: Angina (DC), Type 2 Diabetes in Adults (DC), Basic Carbohydrate Counting (DC), Dizziness (GEN) Discharge Disposition: HOME SELF-CARE
[2016-11-14 17:44] VITALS: BP 148/98; PULSE 62
--- NOTE | 2016-11-14 20:23 | P.PN ---
Subjective Principal diagnosis: Fever, headache and chest pain Pleasant 56-year-old male routinely has modestly good health presents to hospital with a somewhat sudden onset of acute illness. He developed severe generalized weakness. Associated with a significant diffuse headache mostly frontal but also with some neck stiffness originally. He then developed discomforts in his chest that was quite uncomfortable. He has had a history of cardiac evaluation in the past with a stress test, and because of his history presented to emergency center. He has been seen by cardiology for concerns of his chest pain. Infectious disease consultation requested regarding the concerns to meningitis. The patient's family is present. He has 3 daughters and 3 granddaughters who are quite young. One of the daughters and grandchild to live with them. His is also been well. No other ill contacts. 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 He denies other specific symptoms before the onset. He was having no significant nausea or emesis. No congestion or Coryza have occurred. Does not routinely have difficulties with ALLERGIES for his respiratory tract. After fluid resuscitation he feels considerably better. He over does relate that he is feeling better. His dizziness is responded quite well to Antivert. Initial evaluation some blood sugars were elevated. Hemoglobin A1c was requested. This is markedly elevated. We've asked diabetic education both in hospital as an outpatient. Objective - Vital Signs Vital signs: Vital Signs Temp 97 F L 11/14/16 07:46 Pulse 62 11/14/16 16:00 Resp 17 11/14/16 16:00 BP 148/98 11/14/16 16:00 Pulse Ox 97 11/14/16 16:00 Intake & Output 11/14/16 11/14/16 11/15/16 06:59 18:59 06:59 Intake Total 0 380 Balance 0 380 Weight 96.8 kg 96.8 kg Intake: IV 0 Sodium Chloride 0.9% 1, 0 000 ml @ 100 mls/hr IV . Q10H [facility] Rx#:[id number] Oral 380 Other: Voiding Method Toilet Urinal # Voids 1 2 - Exam Pleasant 56-year-old male who appears about his stated age HEENT: Anicteric conjunctiva are pink and moist nasal mucosa grossly intact without significant lesions, there is no thrush. Neck: The neck is supple without significant lymphadenopathy or thyromegaly. Lungs: Good bilateral air entry without significant crackles or wheezing. There is no significant bronchial sounds. There is no egophony or dullness. Heart: Regular rate and rhythm with an audible S1-S2, no S3 no S4. There is no significant murmur click or rub, PMI was nondisplaced. Abdomen: Positive bowel sounds soft and nontender without palpable masses or organomegaly. There was no guarding or rebound. Extremities: The upper extremities have excellent pulses they are symmetric, no significant petechiae or telangiectasia. No splinter hemorrhages were noted. The lower extremities are free from significant edema. The peripheral pulses were 2+ and symmetric. Neuro: Awake alert oriented to person place and time. There are no acute new gross focal sensory motor deficits. - Labs CBC & Chem 7: 11/14/16 06:08 11/14/16 06:08 Labs: Abnormal Lab Results - Last 24 Hours (Table) 11/14/16 11/14/16 11/14/16 Range/Units 06:08 06:08 06:08 Plt Count 127 L (150-450) k/uL Chloride 108 H (98-107) mmol/L BUN 7 L (9-20) mg/dL Glucose 172 H (74-99) mg/dL Hemoglobin A1c 9.5 H (4.2-6.1) % Calcium 8.2 L (8.4-10.2) mg/dL AST 13 L (17-59) U/L Total Protein 5.8 L (6.3-8.2) g/dL Albumin 3.0 L (3.5-5.0) g/dL Microbiology - Last 24 Hours (Table) 11/13/16 16:44 Urine Culture - Final Urine,Voided 11/12/16 12:15 CSF Gram Stain - Preliminary Cerebral Spinal Fluid CSF Culture - Preliminary 11/11/16 19:20 Blood Culture - Preliminary Blood No Growth after 48 hours Laboratory Results WBC 8.0 k/uL (3.8-10.6) 11/14/16 06:08 RBC 4.49 m/uL (4.30-5.90) 11/14/16 06:08 Hgb 14.1 gm/dL (13.0-17.5) 11/14/16 06:08 Hct 39.2 % (39.0-53.0) 11/14/16 06:08 MCV 87.4 fL (80.0-100.0) 11/14/16 06:08 MCH 31.5 pg (25.0-35.0) 11/14/16 06:08 MCHC 36.1 g/dL (31.0-37.0) 11/14/16 06:08 RDW 13.0 % (11.5-15.5) 11/14/16 06:08 Plt Count 127 k/uL (150-450) L 11/14/16 06:08 Neutrophils % 58 % 11/14/16 06:08 Lymphocytes % 27 % 11/14/16 06:08 Monocytes % 8 % 11/14/16 06:08 Eosinophils % 3 % 11/14/16 06:08 Basophils % 0 % 11/14/16 06:08 Neutrophils # 4.6 k/uL (1.3-7.7) 11/14/16 06:08 Lymphocytes # 2.2 k/uL (1.0-4.8) 11/14/16 06:08 Monocytes # 0.6 k/uL (0-1.0) 11/14/16 06:08 Eosinophils # 0.3 k/uL (0-0.7) 11/14/16 06:08 Basophils # 0.0 k/uL (0-0.2) 11/14/16 06:08 ESR 18 mm/hr (0-15) H 11/13/16 06:03 PT 10.4 sec (9.0-12.0) 11/11/16 19:20 INR 1.0 (<1.1) 11/11/16 19:20 APTT 22.2 sec (22.0-30.0) 11/11/16 19:20 D-Dimer 0.49 mg/L FEU (<0.60) 11/11/16 19:20 Sodium 142 mmol/L (137-145) 11/14/16 06:08 Potassium 3.8 mmol/L (3.5-5.1) 11/14/16 06:08 Chloride 108 mmol/L (98-107) H 11/14/16 06:08 Carbon Dioxide 27 mmol/L (22-30) 11/14/16 06:08 Anion Gap 7 mmol/L 11/14/16 06:08 BUN 7 mg/dL (9-20) L 11/14/16 06:08 Creatinine 0.66 mg/dL (0.66-1.25) 11/14/16 06:08 Est GFR (MDRD) Af Amer >60 (>60 ml/min/1.73 sqM) 11/14/16 06:08 Est GFR (MDRD) Non-Af >60 (>60 ml/min/1.73 sqM) 11/14/16 06:08 Glucose 172 mg/dL (74-99) H 11/14/16 06:[address] Glu mg/dL 226 mg/dL 11/14/16 06:08 Hemoglobin A1c 9.5 % (4.2-6.1) H 11/14/16 06:08 Plasma Lactic Acid [place] 1.8 mmol/L (0.7-2.0) 11/12/16 18:02 Calcium 8.2 mg/dL (8.4-10.2) L 11/14/16 06:08 Total Bilirubin 1.2 mg/dL (0.2-1.3) 11/14/16 06:08 AST 13 U/L (17-59) L 11/14/16 06:08 ALT 26 U/L (21-72) 11/14/16 06:08 Alkaline Phosphatase 63 U/L (38-126) 11/14/16 06:08 Total Creatine Kinase 39 U/L (55-170) L 11/12/16 06:41 CK-MB (CK-2) 0.3 ng/mL (0.0-2.4) 11/12/16 06:41 CK-MB (CK-2) Rel Index 0.8 11/12/16 06:41 Troponin I <0.012 ng/mL (0.000-0.034) 11/12/16 06:41 Total Protein 5.8 g/dL (6.3-8.2) L 11/14/16 06:08 Albumin 3.0 g/dL (3.5-5.0) L 11/14/16 06:08 Triglycerides 108 mg/dL (<150) 11/12/16 06:41 Cholesterol 162 mg/dL (<200) 11/12/16 06:41 LDL Cholesterol, Calc 94 mg/dL (0-99) 11/12/16 06:41 HDL Cholesterol 46 mg/dL (40-60) 11/12/16 06:41 TSH 0.096 mIU/L (0.465-4.680) L 11/13/16 06:03 Free T4 1.19 ng/dL (0.78-2.19) 11/13/16 06:03 Urine Color Light Yellow 11/13/16 16:44 Urine Appearance Clear (Clear) 11/13/16 16:44 Urine pH 7.0 (5.0-8.0) 11/13/16 16:44 Ur Specific [place] 1.007 (1.001-1.035) 11/13/16 16:44 Urine Protein Negative (Negative) 11/13/16 16:44 Urine Glucose (UA) 4+ (Negative) H 11/13/16 16:44 Urine Ketones Negative (Negative) 11/13/16 16:44 Urine Blood Negative (Negative) 11/13/16 16:44 Urine Nitrite Negative (Negative) 11/13/16 16:44 Urine Bilirubin Negative (Negative) 11/13/16 16:44 Urine Urobilinogen <2.0 mg/dL (<2.0) 11/13/16 16:44 Ur Leukocyte Esterase Negative (Negative) 11/13/16 16:44 CSF Tube Number 4 11/12/16 12:15 CSF Volume 2.5 11/12/16 12:15 CSF Appearance Clear 11/12/16 12:15 CSF Color Colorless 11/12/16 12:15 CSF RBC 0 u/L (0-10) 11/12/16 12:15 CSF Tot Nucleated Cells 0 u/L (0-5) 11/12/16 12:15 CSF Glucose 115 mg/dL (40-70) H 11/12/16 12:15 CSF Total Protein 39 mg/dL (12-60) 11/12/16 12:15 Microbiology 11/13/16 16:44 Urine,Voided Urine Culture - Final 11/12/16 12:15 Cerebral Spinal Fluid CSF Gram Stain - Preliminary 11/12/16 12:15 Cerebral Spinal Fluid CSF Culture - Preliminary 11/11/16 19:20 Blood Blood Culture - Preliminary No Growth after 48 hours 11/11/16 21:45 Urine,Voided Urine Culture - Final Assessment and Plan (1) Fever Narrative/Plan: Pleasant 56-year-old male presents to Hospital with a relatively sudden onset of feeling very poorly. He had fever with headache. He also complains of the dizziness. Upon evaluation appears to be more of a positional onset lightheadedness with feelings of near syncope. He does not have vertigo. His chest pain has resolved. He is overall feeling considerably better. Fevers are also improving. Patient went lumbar puncture as noted above. The CSF is completely normal. The patient does not have meningitis. Computed tomography scan was performed with no evidence of any abnormalities. At this time the patient has the acute onset of a febrile illness associated with transient chest pain that is now resolved. He's been seen by cardiology. An outpatient reevaluation will occur he is been seen by them in the past and will have a follow-up stress test. If this time appears that he has a viral infection with vestibulitis causing his current symptoms. With hydration he is significantly improved. His fevers have resolved. With the negative lumbar puncture antibiotic therapy is discontinued. Antipyretics as needed, he offers no afebrile for more than a day. Ready for discharge to home. No evidence of any underlying infection. Antivert allowed improvement of his dizziness. Likely had a viral event that was considerably worsened by his uncontrolled diabetes. This is not being addressed and we follow in the outpatient setting for his diabetes by his primary care. Status: Acute (2) Chest pain Status: Acute (3) Vestibulitis of ear Status: Acute
== END 2016-11-14 18:39 | disposition home or self-care (01) | DRG 872 ==
LOC: EC 19:11 → 6SEL 20:35
PROVIDERS: ADMIT Internal Medicine; ATTEND Internal Medicine
PROC: 009U3ZX Drainage of Spinal Canal, Percutaneous Approach, Diagnostic (ICD-10-PCS; principal; 2016-11-12)
DX: A41.89 Other specified sepsis (principal); E87.2 Acidosis; I10 Essential (primary) hypertension; R07.89 Other chest pain; H83.09 Labyrinthitis, unspecified ear; E11.65 Type 2 diabetes mellitus with hyperglycemia; R00.0 Tachycardia, unspecified; G89.29 Other chronic pain; R53.1 Weakness; R61 Generalized hyperhidrosis; M19.90 Unspecified osteoarthritis, unspecified site; H53.8 Other visual disturbances; I25.2 Old myocardial infarction; M54.9 Dorsalgia, unspecified; M54.2 Cervicalgia; R51 Headache; Z79.82 Long term (current) use of aspirin; Z79.899 Other long term (current) drug therapy; Z83.3 Family history of diabetes mellitus; Z87.891 Personal history of nicotine dependence; Z88.7 Allergy status to serum and vaccine; Z71.3 Dietary counseling and surveillance
CPT/HCPCS: 36415; 70450; 71010; 80053; 80061; 81003; 82550; 82553; 82945; 83036; 83605; 84157; 84439; 84443; 84484; 85025; 85379; 85610; 85652; 85730; 87040; 87070; 87086; 87205; 89050; 93005; 93306

== ENCOUNTER 2022-04-19 11:47 | Emergency (ER) | payer BC, OTHER ==
[2022-04-19 12:01] VITALS: RESP 16; TEMP 98.3
[2022-04-19] MEDS ORDERED: lisinopriL 20 MG TAB PO STA (13:02)
[2022-04-19] MEDS ORDERED: PANTOPRAZOLE 40 MG/10 ML VIAL IVP STA (13:02)
[2022-04-19 13:07] LABS: Basophils # (A) 0.1 k/uL (0-0.2); Basophils % (A) 1 %; Eosinophils # (A) 0.1 k/uL (0-0.7); Eosinophils % (A) 1 %; HCT 46.2 % (39.0-53.0); HGB 16.3 gm/dL (13.0-17.5); Lymphocytes # (A) 1.9 k/uL (1.0-4.8); Lymphocytes % (A) 17 %; MCH 30.6 pg (25.0-35.0); MCHC 35.2 g/dL (31.0-37.0); MCV 87.1 fL (80.0-100.0); Mean Platelet Volume 8.7; Monocytes # (A) 0.5 k/uL (0-1.0); Monocytes % (A) 5 %; Neutrophils # (A) 8.2 k/uL (1.3-7.7); Neutrophils % (A) 75 %; Platelet Count 214 k/uL (150-450); RBC 5.31 m/uL (4.30-5.90); RDW 12.8 % (11.5-15.5); WBC 10.9 k/uL (3.8-10.6)
--- NOTE | 2022-04-19 13:14 | ED ---
GI Bleed HPI - General Chief complaint: GI Bleed Stated complaint: left side pain, blood in stool Time Seen by Provider: 04/19/22 12:40 Source: patient, RN notes reviewed Mode of arrival: ambulatory Limitations: no limitations - History of Present Illness Initial comments: Patient is a pleasant 62-year-old presenting to the emergency room with complaints of bloody stools ongoing for approximately 24 hours and getting worse. He denies any previous episodes of bloody stools are history of hemorrhoids. He states that he also has right flank pain that has been ongoing for approximately 3 days. He denies any chest pain, shortness of breath, ab dominal pain, nausea, vomiting, headache, dizziness, fevers or chills. He reports that he has not been following up with primary care provider consequently he ran out of his blood pressure medication and since that time his blood pressure has been high. He was previously taking lisinopril with good control of his blood pressure. With the exception of his as previously stated hypertension he has no other significant past medical history. - Related Data Home Medications Medication Instructions Recorded Confirmed Aspirin 325 mg PO DAILY PRN 11/11/16 11/11/16 Aspirin [Adult Low Dose Aspirin EC] 81 mg PO DAILY PRN 11/11/16 11/11/16 lisinopriL [Zestril] 40 mg PO DAILY 11/11/16 11/11/16 Previous Rx's Medication Instructions Recorded Meclizine [Antivert] 25 mg PO QID PRN #30 tab 11/14/16 glipiZIDE XL [Glucotrol XL] 5 mg PO DAILY #30 tab 11/14/16 metFORMIN HCL [Metformin HCl] 850 mg PO BID #60 tablet 11/14/16 Allergies Allergy/AdvReac Type Severity Reaction Status Date / Time tetanus toxoid, adsorbed Allergy Unknown Verified 04/19/22 11:56 Review of Systems ROS Statement: Those systems with pertinent positive or pertinent negative responses have been documented in the HPI. ROS Other: All systems not noted in ROS Statement are negative. Past Medical History Past Medical History: Hypertension Additional Past Medical History / Comment(s): UMBILICAL HERNIA, BACK ISSUES History of Any Multi-Drug Resistant Organisms: None Reported Past Surgical History: No Surgical Hx Reported Past Anesthesia/Blood Transfusion Reactions: No Reported Reaction Past Psychological History: No Psychological Hx Reported Smoking Status: Never smoker Past Alcohol Use History: Occasional Past Drug Use History: None Reported - Past Family History Mother Family Medical History: Diabetes Mellitus General Exam Limitations: no limitations General appearance: alert, in no apparent distress Head exam: Present: atraumatic, normocephalic, normal inspection Eye exam: Present: normal appearance, PERRL, EOMI. Absent: scleral icterus, conjunctival injection, periorbital swelling ENT exam: Present: normal exam, mucous membranes moist Neck exam: Present: normal inspection, full ROM. Absent: lymphadenopathy Respiratory exam: Present: normal lung sounds bilaterally. Absent: respiratory distress, wheezes, rales, rhonchi, stridor Cardiovascular Exam: Present: regular rate, normal rhythm, normal heart sounds. Absent: systolic murmur, diastolic murmur, rubs, gallop, clicks GI/Abdominal exam: Present: soft, normal bowel sounds, hernia (Umbilical). Absent: distended, tenderness, guarding, rebound, rigid Rectal exam: Present: deferred, bloody stool (loose tarry with blood tinge) Extremities exam: Present: normal inspection. Absent: pedal edema, joint swelling Back exam: Present: normal inspection. Absent: CVA tenderness (R), CVA tenderness (L) Neurological exam: Present: alert, oriented X3, CN II-XII intact Psychiatric exam: Present: normal affect, normal mood Skin exam: Present: warm, dry, intact, normal color. Absent: rash Course Vital Signs 04/19/22 04/19/22 11:56 15:22 Temperature 98.3 F Pulse Rate 104 H 96 Respiratory 16 16 Rate Blood Pressure 207/115 130/92 O2 Sat by Pulse 100 97 Oximetry Medical Decision Making - Medical Decision Making 62-year-old male presenting with left flank pain and bloody stools ongoing for approximately 24 hours with worsening symptoms. No need for stool for occult blood in the setting of gross bloody stool. Will obtain CT of the abdomen, CBC, CMP, EKG, magnesium, coags, and urinalysis. Will give IV Protonix along with lisinopril for blood pressure and monitor. Patient advised of lack of GI services here at this facility and if need for GI services will need transfer to another facility. EKG shows sinus rhythm with probable old infarcts. CBC shows mild leukocytosis likely inflammatory hemoglobin stable. CMP reveals elevated glucose consistent with the diagnosis of diabetes not currently on any diabetic medication. AST and ALTs along with renal function all normal. Urinalysis reveal possible ketones plus for glucose consistent again for diabetes. Tolerated IV Protonix well. Blood pressure improved with dose of lisinopril. CT of the abdomen without any evidence for definitive etiology for gastrointestinal hemorrhage. Anthony mesenteric noted. Findings discussed with patient. Advised further evaluation and monitoring by gastrointestinal's services recommended. Patient agreeable for transfer to another facility for admission for monitoring and treatment of GI bleed. Spoke with Dr. Noriega ER attending at [facility] who is accepting of transfer of patient to [facility] ER for further evaluation and treatment of gastrointestinal bleed. Patient is being transferred via ambulance to [facility] emergency room in stable condition without any medications and refusing at this time. Case discussed with Dr. Gore. - Lab Data Result diagrams: 04/19/22 13:01 04/19/22 13:01 Lab Results 04/19/22 04/19/22 04/19/22 Range/Units 13:01 13:01 13:01 WBC 10.9 H (3.8-10.6) k/uL RBC 5.31 (4.30-5.90) m/uL Hgb 16.3 (13.0-17.5) gm/dL Hct 46.2 (39.0-53.0) % MCV 87.1 (80.0-100.0) fL MCH 30.6 (25.0-35.0) pg MCHC 35.2 (31.0-37.0) g/dL RDW 12.8 (11.5-15.5) % Plt Count 214 (150-450) k/uL MPV 8.7 Neutrophils % 75 % Lymphocytes % 17 % Monocytes % 5 % Eosinophils % 1 % Basophils % 1 % Neutrophils # 8.2 H (1.3-7.7) k/uL Lymphocytes # 1.9 (1.0-4.8) k/uL Monocytes # 0.5 (0-1.0) k/uL Eosinophils # 0.1 (0-0.7) k/uL Basophils # 0.1 (0-0.2) k/uL APTT 23.3 (22.0-30.0) sec Sodium 140 (137-145) mmol/L Potassium 4.2 (3.5-5.1) mmol/L Chloride 105 (98-107) mmol/L Carbon Dioxide 25 (22-30) mmol/L Anion Gap 10 mmol/L BUN 13 (9-20) mg/dL Creatinine 0.70 (0.66-1.25) mg/dL Est GFR (CKD-EPI)AfAm >90 (>60 ml/min/1.73 sqM) Est GFR (CKD-EPI)NonAf >90 (>60 ml/min/1.73 sqM) Glucose 308 H (74-99) mg/dL Calcium 8.8 (8.4-10.2) mg/dL Magnesium 1.7 (1.6-2.3) mg/dL Total Bilirubin 1.7 H (0.2-1.3) mg/dL AST 18 (17-59) U/L ALT 22 (4-49) U/L Alkaline Phosphatase 118 (38-126) U/L Troponin I (0.000-0.034) ng/mL Total Protein 7.2 (6.3-8.2) g/dL Albumin 4.4 (3.5-5.0) g/dL Urine Color Urine Appearance (Clear) Urine pH (5.0-8.0) Ur Specific [place] (1.001-1.035) Urine Protein (Negative) Urine Glucose (UA) (Negative) Urine Ketones (Negative) Urine Blood (Negative) Urine Nitrite (Negative) Urine Bilirubin (Negative) Urine Urobilinogen (<2.0) mg/dL Ur Leukocyte Esterase (Negative) 04/19/22 04/19/22 Range/Units 13:01 13:03 WBC (3.8-10.6) k/uL RBC (4.30-5.90) m/uL Hgb (13.0-17.5) gm/dL Hct (39.0-53.0) % MCV (80.0-100.0) fL MCH (25.0-35.0) pg MCHC (31.0-37.0) g/dL RDW (11.5-15.5) % Plt Count (150-450) k/uL MPV Neutrophils % % Lymphocytes % % Monocytes % % Eosinophils % % Basophils % % Neutrophils # (1.3-7.7) k/uL Lymphocytes # (1.0-4.8) k/uL Monocytes # (0-1.0) k/uL Eosinophils # (0-0.7) k/uL Basophils # (0-0.2) k/uL APTT (22.0-30.0) sec Sodium (137-145) mmol/L Potassium (3.5-5.1) mmol/L Chloride (98-107) mmol/L Carbon Dioxide (22-30) mmol/L Anion Gap mmol/L BUN (9-20) mg/dL Creatinine (0.66-1.25) mg/dL Est GFR (CKD-EPI)AfAm (>60 ml/min/1.73 sqM) Est GFR (CKD-EPI)NonAf (>60 ml/min/1.73 sqM) Glucose (74-99) mg/dL Calcium (8.4-10.2) mg/dL Magnesium (1.6-2.3) mg/dL Total Bilirubin (0.2-1.3) mg/dL AST (17-59) U/L ALT (4-49) U/L Alkaline Phosphatase (38-126) U/L Troponin I <0.012 (0.000-0.034) ng/mL Total Protein (6.3-8.2) g/dL Albumin (3.5-5.0) g/dL Urine Color Yellow Urine Appearance Clear (Clear) Urine pH 5.0 (5.0-8.0) Ur Specific [place] 1.027 (1.001-1.035) Urine Protein Trace H (Negative) Urine Glucose (UA) 4+ H (Negative) Urine Ketones 1+ H (Negative) Urine Blood Negative (Negative) Urine Nitrite Negative (Negative) Urine Bilirubin Negative (Negative) Urine Urobilinogen <2.0 (<2.0) mg/dL Ur Leukocyte Esterase Negative (Negative) - EKG Data -: EKG Interpreted by Me EKG Comments: EKG at 1306 shows sinus rhythm, possible anterior old myocardial infarct and probable old inferior myocardial infarct, ventricular rate 90 bpm, NC interval 160 ms, QRS duration 101 ms, QT/QTC 346/401 ms, PRT axes 24, -15, -2 - Radiology Data Radiology results: report reviewed, image reviewed CT abdomen pelvis with contrast impression: No defined evidence for gastrointestinal hemorrhage. Nonspecific anthony mesenteric could represent sclerosing panniculitis. Chronic diverticulosis without diverticulitis. Fat- containing umbilical hernia. Bilateral inguinal hernias. Hepatic steatosis. Disposition Clinical Impression: GIB (gastrointestinal bleeding) Disposition: OTHER INSTITUTION NOT DEFINED Condition: Stable Is patient prescribed a controlled substance at d/c from ED?: No Referrals: Ponce Marie MD [Primary Care Provider] - 1-2 days Time of Disposition: 15:19 - Out of Hospital Transfer - Req. Specs Out of Hospital Transfer - Requested Specifics: Other Emergency Center (ER to ER [facility] excepting physician Dr Noriega)
[2022-04-19 13:20] LABS: ALT 22 U/L (4-49); AST 18 U/L (17-59); African American GFR (CKD) >90 (>60 ml/min/1.73 sqM); Albumin 4.4 g/dL (3.5-5.0); Alkaline Phosphatase 118 U/L (38-126); Anion Gap 10 mmol/L; Blood Urea Nitrogen 13 mg/dL (9-20); Calcium 8.8 mg/dL (8.4-10.2); Carbon Dioxide 25 mmol/L (22-30); Chloride 105 mmol/L (98-107); Glucose 308 mg/dL (74-99); Magnesium 1.7 mg/dL (1.6-2.3); Non-African American GFR(CKD) >90 (>60 ml/min/1.73 sqM); Potassium 4.2 mmol/L (3.5-5.1); Sodium 140 mmol/L (137-145); Total Bilirubin 1.7 mg/dL (0.2-1.3); Total Protein 7.2 g/dL (6.3-8.2)
[2022-04-19 13:28] LABS: Appearance,Urine Clear (Clear); Bilirubin,Urine Negative (Negative); Blood,Urine Negative (Negative); Color,Urine Yellow; Glucose,Urine (UA) 4+ (Negative); Ketones,Urine 1+ (Negative); Leukocyte Esterase,Urine Negative (Negative); Nitrite,Urine Negative (Negative); Protein,Urine Trace (Negative); Specific Gravity,Urine 1.027 (1.001-1.035); Urobilinogen,Urine <2.0 mg/dL (<2.0)
--- NOTE | 2022-04-19 14:21 | CT ---
EXAMINATION TYPE: CT abdomen pelvis w con CT DLP: 1428.5 mGycm, Automated exposure control for dose reduction was used. DATE OF EXAM: 04/19/2022 2:07 PM COMPARISON: None CLINICAL INDICATION:Male, 62 years old with history of left flank pain/ bloody stool; bloody stool, r ight side abd pain TECHNIQUE: Axial CT of the abdomen and pelvis. Sagittal and coronal reformats were created on a [employer] workstation. Contrast used:100 mL of Isovue 300 with IV Contrast, Oral contrast used: without Oral Contrast FINDINGS: LOWER CHEST: Streaky atelectasis/scarring. ABDOMEN LIVER: Diffusely hypoattenuating parenchyma. GALLBLADDER AND BILE DUCTS: Unremarkable. PANCREAS: Unremarkable. SPLEEN: Unremarkable. ADRENAL GLANDS: Unremarkable. KIDNEYS AND URETERS: No evidence of hydronephrosis or renal calculus. The ureters are unremarkable. PELVIS BLADDER: Unremarkable REPRODUCTIVE: Unremarkable. ABDOMEN & PELVIS STOMACH AND BOWEL: No evidence of bowel obstruction. Clonic diverticulosis is present. Appendix is no rmal PERITONEUM: No evidence of pneumoperitoneum or free fluid. There is a anthony mesentery in the mid abdo men. VASCULATURE: No evidence of aortic aneurysm. Atherosclerosis of the arterial vasculature. MUSCULOSKELETAL: No acute osseous abnormalities, multilevel disc degeneration changes. LYMPH NODES: No gross evidence for lymphadenopathy. SOFT TISSUE/ABDOMINAL WALL: Fat filled umbilical hernia measuring 2.4 cm at the neck. Bilateral fat-containing inguinal hernias right greater than left. IMPRESSION: 1. No definitive evidence for gastrointestinal hemorrhage on this predominantly single phase study w ith just limited delayed imaging. 2. Nonspecific Anthony mesentery could represent sclerosing panniculitis. 3. Colonic diverticulosis. 4. Fat-containing umbilical hernia. 5. Bilateral inguinal hernias. 6. Hepatic steatosis.
[2022-04-19 16:01] VITALS: BP 130/92; PULSE 96
== END 2022-04-19 16:20 | disposition other institution (70) ==
LOC: EC 11:47
DX: K92.2 Gastrointestinal hemorrhage, unspecified (principal); I10 Essential (primary) hypertension; Z79.82 Long term (current) use of aspirin; Z79.899 Other long term (current) drug therapy; Z88.7 Allergy status to serum and vaccine
CPT/HCPCS: 36415; 93005; 80053; 83735; 84484; 85025; 85730; 81003; 74177; 99285; 96374; C9113; Q9967

== ENCOUNTER 2023-09-07 21:38 | Emergency (ER) | payer OTHER, BC ==
[2023-09-07 22:12] VITALS: RESP 18; TEMP 98.7
--- NOTE | 2023-09-07 22:28 | ED ---
Fall HPI - General Source: patient Mode of arrival: EMS <Navi Juan - Last Filed: 09/08/23 00:30> <Danii Johns - Last Filed: 09/08/23 03:47> - General Chief Complaint: Fall Stated Complaint: Fall Time Seen by Provider: 09/07/23 21:41 - History of Present Illness Initial Comments: 63-year-old male presents to the ED with a chief complaint of fall. Patient states that he was carrying product when a corner of the box got caught on a net which caused him to fall backwards landing primarily on his back. Denies any head injury at this time. Denies injury of his extremities or any other injury. Review of prior records show that patient was taking baby aspirin however patient reports that he has stopped taking all his daily medications. Denies saddle anesthesia or incontinence. No other complaints at this time. (Navi Juan) - Related Data Home Medications Medication Instructions Recorded Confirmed Aspirin 325 mg PO DAILY PRN 11/11/16 11/11/16 Aspirin [Adult Low Dose Aspirin EC] 81 mg PO DAILY PRN 11/11/16 11/11/16 lisinopriL [Zestril] 40 mg PO DAILY 11/11/16 11/11/16 Previous Rx's Medication Instructions Recorded Meclizine [Antivert] 25 mg PO QID PRN #30 tab 11/14/16 glipiZIDE XL [Glucotrol XL] 5 mg PO DAILY #30 tab 11/14/16 metFORMIN HCL [Metformin HCl] 850 mg PO BID #60 tablet 11/14/16 Allergies Allergy/AdvReac Type Severity Reaction Status Date / Time tetanus toxoid, adsorbed Allergy Unknown Verified 09/07/23 21:47 Review of Systems ROS Other: All systems not noted in ROS Statement are negative. <Navi Juan - Last Filed: 09/08/23 00:30> ROS Other: All systems not noted in ROS Statement are negative. <Danii Johns - Last Filed: 09/08/23 03:47> ROS Statement: Those systems with pertinent positive or pertinent negative responses have been documented in the HPI. Past Medical History Past Medical History: Chest Pain / Angina, Diabetes Mellitus, Hyperlipidemia, Hypertension Additional Past Medical History / Comment(s): UMBILICAL HERNIA, BACK ISSUES History of Any Multi-Drug Resistant Organisms: None Reported Past Surgical History: No Surgical Hx Reported Past Anesthesia/Blood Transfusion Reactions: No Reported Reaction Past Psychological History: No Psychological Hx Reported Smoking Status: Never smoker Past Alcohol Use History: Occasional Past Drug Use History: None Reported - Past Family History Mother Family Medical History: Diabetes Mellitus <YessicaNavi - Last Filed: 09/08/23 00:30> General Exam General appearance: alert, in no apparent distress Head exam: Present: atraumatic, normocephalic, other (No azar signs or raccoon's eyes) Neck exam: Present: normal inspection Respiratory exam: Present: normal lung sounds bilaterally Cardiovascular Exam: Present: regular rate GI/Abdominal exam: Present: soft, normal bowel sounds. Absent: distended, tenderness, guarding, rebound, rigid Extremities exam: Present: other (Full active range of motion of bilateral upper lower extremities. Strength and sensation intact in bilateral upper lower extremities.) Back exam: Present: normal inspection, other (Does have some mid and paraspinal tenderness to palpation at the lower thoracic/upper lumbar area to the left.) Neurological exam: Present: alert, oriented X3 Skin exam: Present: warm, dry <YessicaNavi - Last Filed: 09/08/23 00:30> Course Vital Signs 09/07/23 09/07/23 09/07/23 21:42 22:47 23:00 Temperature 98.7 F Pulse Rate 70 68 73 Respiratory 18 18 18 Rate Blood Pressure 200/115 158/100 156/101 O2 Sat by Pulse 98 97 96 Oximetry 09/07/23 09/08/23 09/08/23 23:46 02:29 03:19 Temperature Pulse Rate 68 72 Respiratory 18 18 Rate Blood Pressure 172/99 159/87 148/103 O2 Sat by Pulse 98 Oximetry Medical Decision Making <Navi Juan - Last Filed: 09/08/23 00:30> <Danii Johns - Last Filed: 09/08/23 03:47> - Medical Decision Making Was pt. sent in by a medical professional or institution (, PA, BAG SHOP WORKER, urgent care, hospital, or retirement...) When possible be specific @ -No Did you speak to anyone other than the patient for history (EMS, parent, family, police, friend...)? What history was obtained from this source @ -No Did you review nursing and triage notes (agree or disagree)? Why? @ -I reviewed and agree with nursing and triage notes Were old charts reviewed (outside hosp., previous admission, EMS record, old EKG, old radiological studies, urgent care reports/EKG's, retirement records)? Report findings @ -No old charts were reviewed Differential Diagnosis (chest pain, altered mental status, abdominal pain women, abdominal pain men, vaginal bleeding, weakness, fever, dyspnea, syncope, headache, dizziness, GI bleed, back pain, seizure, CVA, palpatations, mental health, musculoskeletal)? @ -Differential Musculoskeletal Muscular strain, contusion, ligament sprain, fracture, arthritis, septic arthritis, bursitis, cellulitis, muscle spasm, nerve compression, DVT, arterial occlusion, herpes zoster, electrolyte abnormality, tumor.... This is not meant to be in all inclusive list EKG interpreted by me (3pts min.). @ -None X-rays interpreted by me (1pt min.). @ -Pending CT interpreted by me (1pt min.). @ -None done U/S interpreted by me (1pt. min.). @ -None done What testing was considered but not performed or refused? (CT, X-rays, U/S, labs)? Why? @ -None What meds were considered but not given or refused? Why? @ -Analgesia was considered and offered to the patient however at this time patient reports that he usually does not like taking medications and at this time would not like any. Did you discuss the management of the patient with other professionals (professionals i.e. , PA, BAG SHOP WORKER, lab, RT, psych nurse, case management social worker, electrician supervisor substation, teacher, labor relations officer, case specialist)? Give summary @ -No Was smoking cessation discussed for >3mins.? @ -No Was critical care preformed (if so, how long)? @ -No Were there social determinants of health that impacted care today? How? (Homelessness, low income, unemployed, alcoholism, drug addiction, transportation, low edu. Level, literacy, decrease access to med. care, snf, rehab)? @ -No Was there de-escalation of care discussed even if they declined (Discuss DNR or withdrawal of care, Hospice)? DNR status @ -No What co-morbidities impacted this encounter? (DM, HTN, Smoking, COPD, CAD, Cancer, CVA, ARF, Chemo, Hep., AIDS, mental health diagnosis, sleep apnea, morbid obesity)? @ -None Was patient admitted / discharged? Hospital course, mention meds given and route, prescriptions, significant lab abnormalities, going to OR and other pertinent info. @ -Pending 63-year-old male presented to the ED status post mechanical fall complaining of mid back pain. No saddle anesthesia or incontinence. No head injury. Patient reports taking no medications on a daily basis. X-rays are currently pending and case signed out to Danii Johns PA-C for further disposition. (Navi Juan) Was patient admitted / discharged? Hospital course, mention meds given and route, prescriptions, significant lab abnormalities, going to OR and other pertinent info. @ -Patient was signed out to me from Yaya Juan PA-C. In short this is a 63-year-old male who tripped and fell at work while holding a wooden crate. This caused him to fall backwards and fall onto his back. He denies head injury, loss of consciousness, or use of blood thinners. He is mainly complaining of lower back pain. No red flag symptoms. On exam he has a GCS of 15, extraocular motions are intact, equal strength in all extremities, PERRLA, A&O x 3. Previous PA obtained x-rays of the lumbar spine and thoracic spine which showed no acute process. Given the patient's age and high likelihood that he did in fact hit his head but does not remember, I obtained a CT of the brain and cervical spine. No acute intracranial process or cervical spine fracture. Patient is educated on today's findings and supportive management at home. Discharged home. Follow-up with PCP. Report back to ER with any new or worsening symptoms. Discussed return parameters and answered all questions. Patient conveyed verbal understanding and agreed to the plan. I discussed this case in detail with my attending Dr. Crisostomo Undiagnosed new problem with uncertain prognosis? @ -No Drug Therapy requiring intensive monitoring for toxicity (Heparin, Nitro, Insulin, Cardizem)? @ -No Were any procedures done? @ -No Diagnosis/symptom? @ -Fall, back pain Acute, or Chronic, or Acute on Chronic? @ -Acute Uncomplicated (without systemic symptoms) or Complicated (systemic symptoms)? @ -Uncomplicated Side effects of treatment? @ -No Exacerbation, Progression, or Severe Exacerbation? @ -No Poses a threat to life or bodily function? How? (Chest pain, [place], [place], pneumonia, PE, COPD, DKA, ARF, appy, cholecystitis, CVA, Diverticulitis, Homicidal, Suicidal, threat to staff... and all critical care pts) @ -Low likelihood (Danii Johns) Disposition <Navi Juan - Last Filed: 09/08/23 00:30> Is patient prescribed a controlled substance at d/c from ED?: No Time of Disposition: 02:40 <Danii Johns - Last Filed: 09/08/23 03:47> Clinical Impression: Fall Disposition: HOME SELF-CARE Condition: Good Instructions (If sedation given, give patient instructions): Head Injury (ED), Back Pain (ED) Additional Instructions: Follow-up with PCP. Report back to ER with any new or worsening symptoms. Referrals: Ponce Marie MD [Primary Care Provider] - 1-2 days
--- NOTE | 2023-09-08 00:37 | XR ---
EXAM: XR Lumbosacral Spine, 2 or 3 Views CLINICAL HISTORY: ITS.REASON XR Reason: s/p fall back pain TECHNIQUE: Frontal and lateral views of the lumbar spine and sacrum. COMPARISON: No relevant prior studies available. FINDINGS: Vertebrae: No acute fracture. Mild levoscoliosis. Minimal retrolisthesis L5 on S1. Disc spaces: Degenerative changes. Soft tissues: Unremarkable. IMPRESSION: No acute findings.
--- NOTE | 2023-09-08 00:37 | XR ---
EXAM: XR Thoracic Spine, 2 Views CLINICAL HISTORY: ITS.REASON XR Reason: s/p fall back pain TECHNIQUE: Frontal and lateral views of the thoracic spine. COMPARISON: No relevant prior studies available. FINDINGS: Vertebrae: No acute fracture. Normal sagittal alignment. Minimal dextroscoliosis. Disc spaces: Degenerative changes. Soft tissues: Unremarkable. IMPRESSION: No acute osseous findings.
[2023-09-08] MEDS: hydrALAZINE HCL 20 MG/ML 1 ML VIAL IVP STA ×2 (01:17→01:39)
--- NOTE | 2023-09-08 02:32 | CT ---
EXAM: CT Head Without Intravenous Contrast CLINICAL HISTORY: ITS.REASON CT Reason: fall TECHNIQUE: Axial computed tomography images of the head/brain without intravenous contrast. CTDI is 45.2 mGy and DLP is 1112 mGy-cm. This CT exam was performed using one or more of the following dose reduction techniques: automated exposure control, adjustment of the mA and/or kV according to patient size, and/or use of iterative reconstruction technique. COMPARISON: No relevant prior studies available. FINDINGS: Brain: No hemorrhage or mass effect. Ventricles: No hydrocephalus. Bones/joints: Unremarkable. Soft tissues: Unremarkable. Sinuses: No air fluid level. Mastoid air cells: Clear. IMPRESSION: No acute hemorrhage, hydrocephalus, or mass effect. EXAM: CT Cervical Spine Without Intravenous Contrast CLINICAL HISTORY: ITS.REASON CT Reason: fall TECHNIQUE: Axial computed tomography images of the cervical spine without intravenous contrast. CTDI is 5.7 mGy and DLP is 167.6 mGy-cm. This CT exam was performed using one or more of the following dose reduction techniques: automated exposure control, adjustment of the mA and/or kV according to patient size, and/or use of iterative reconstruction technique. COMPARISON: No relevant prior studies available. FINDINGS: Vertebrae: No acute fracture. Discs/spinal canal/neural foramina: degenerative changes. Soft tissues: No prevertebral swelling. IMPRESSION: No acute fracture or subluxation.
[2023-09-08 03:37] VITALS: BP 148/103; PULSE 72
== END 2023-09-08 03:19 | disposition home or self-care (01) ==
LOC: EC 21:38
DX: M54.9 Dorsalgia, unspecified (principal); Z88.7 Allergy status to serum and vaccine; W18.30XA Fall on same level, unspecified, initial encounter
CPT/HCPCS: 72070; 72100; 72125; 70450; 99284; 96374; J0360